=== PATIENT | male | born 1985 | race Caucasian/White ===

== ENCOUNTER → 2017-08-11 | Outpatient (CLI) | payer OTHER ==
[~2017-08-11] MED LIST: GLIPIZIDE; GLYMET2.5 PO; Glimepiride4 MG PO; LISINOPRIL; METF500 PO; MULTIVITAMINS; SUMA25 PO
[2017-08-11 13:03] LABS: BASOPHILS ABSOLUTE AUTO 0.03 K/mm3 (0.00-0.23); BASOPHILS PERCENT AUTO 1 % (0-2); EOSINOPHILS ABSOLUTE AUTO 0.17 K/mm3 (0.00-0.68); EOSINOPHILS PERCENT AUTO 3 % (0-6); Hemoglobin 15.6 g/dL (13.5-17.5); IMMATURE GRAN ABSOLUTE AUTO 0.02 K/mm3 (0.00-0.10); IMMATURE GRAN PERCENT AUTO 0 % (0-1); LYMPHOCYTES PERCENT AUTO 33 % (21-46); MONOCYTES ABSOLUTE AUTO 0.46 K/mm3 (0.16-1.47); MONOCYTES PERCENT AUTO 7 % (4-13); Mean Corpuscular HGB 31.3 pg (26.0-34.0); Mean Corpuscular HGB Conc 36.3 g/dL (31.5-36.5); Mean Corpuscular Volume 86 fL (80-100); Mean Platelet Volume 9.1 fL (9.1-12.4); NEUTROPHILS ABSOLUTE AUTO 3.78 K/mm3 (1.96-9.15); NEUTROPHILS PERCENT AUTO 57 % (41-73); Platelet Count 244 K/mm3 (150-400); RDW Coefficient Variation 12.2 % (11.7-14.2); RDW Standard Deviation 38.2 fL (35.1-46.3); Red Blood Cell Count 4.99 M/mm3 (4.30-5.90); White Blood Cell Count 6.66 K/mm3 (4.00-11.30)
[2017-08-11 13:19] LABS: Alanine Aminotransfer (ALT/SGP 58 U/L (12-78); Albumin, Blood 4.2 g/dL (3.4-5.0); Alk Phos 73 U/L (40-126); Anion Gap 14 mmol/L (6-16); Aspartate Aminotrans (AST/SGOT 15 U/L (12-37); Bilirubin, Total 0.4 mg/dL (0.1-1.0); Blood Urea Nitrogen 14 mg/dL (8-24); CO2, Blood 24 mmol/L (21-32); Calcium, Blood 9.4 mg/dL (8.5-10.1); Chloride, Blood 97 mmol/L (98-108); Creatinine, Blood 1.08 mg/dL (0.60-1.20); Globulin, Blood 4.4 g/dL (2.2-4.0); Glomerular Filtration Rate >60 (60-); Glucose, Blood 412 mg/dL (70-99); Potassium, Blood 4.1 mmol/L (3.5-5.5); Sodium, Blood 135 mmol/L (136-145); Total Protein, Blood 8.6 g/dL (6.4-8.2)
== END | disposition home or self-care (01) ==
LOC: LAB EV 12:58 → LAB SHORT 12:58
PROVIDERS: Family Medicine
DX: R10.9 Unspecified abdominal pain (principal)
CPT/HCPCS: 80053; 85025

== ENCOUNTER → 2017-09-09 | Outpatient (CLI) | payer OTHER | LOC: LAB 10:30 → LAB SHORT 10:30 | DX: E11.621 Type 2 diabetes mellitus with foot ulcer (principal); L97.509 Non-pressure chronic ulcer of other part of unspecified foot with unspecified severity | CPT/HCPCS: 87070; 87077; 87186; 87205 ==

== ENCOUNTER → 2017-10-17 | Outpatient (CLI) | payer OTHER | END | disposition home or self-care (01) | LOC: LAB SHORT 13:40 → LAB 13:40 | DX: E11.621 Type 2 diabetes mellitus with foot ulcer (principal); L97.509 Non-pressure chronic ulcer of other part of unspecified foot with unspecified severity | CPT/HCPCS: 87070; 87186 ==

== ENCOUNTER 2018-06-23 14:31 | Inpatient (IN) | payer OTHER ==
[~2018-06-23] VITALS: Ht 165.1 cm; Wt 105.0 kg
[~2018-06-23 14:31] MED LIST changes: +Augmentin 875-1 EACH PO; +Bactrim Ds Tab1 EACH PO
[2018-06-23 16:22] LABS: BASOPHILS ABSOLUTE AUTO 0.02 K/mm3 (0.00-0.23); BASOPHILS PERCENT AUTO 0 % (0-2); EOSINOPHILS PERCENT AUTO 1 % (0-6); Hematocrit 36.8 % (37.0-53.0); Hemoglobin 12.8 g/dL (13.5-17.5); IMMATURE GRAN ABSOLUTE AUTO 0.02 K/mm3 (0.00-0.10); IMMATURE GRAN PERCENT AUTO 0 % (0-1); LYMPHOCYTES PERCENT AUTO 17 % (21-46); MONOCYTES ABSOLUTE AUTO 0.57 K/mm3 (0.16-1.47); MONOCYTES PERCENT AUTO 7 % (4-13); Mean Corpuscular HGB 30.7 pg (26.0-34.0); Mean Corpuscular HGB Conc 34.8 g/dL (31.5-36.5); Mean Corpuscular Volume 88 fL (80-100); Mean Platelet Volume 8.6 fL (9.1-12.4); NEUTROPHILS ABSOLUTE AUTO 6.38 K/mm3 (1.96-9.15); NEUTROPHILS PERCENT AUTO 75 % (41-73); Platelet Count 300 K/mm3 (150-400); RDW Coefficient Variation 11.9 % (11.7-14.2); RDW Standard Deviation 38.5 fL (35.1-46.3); Red Blood Cell Count 4.17 M/mm3 (4.30-5.90); White Blood Cell Count 8.49 K/mm3 (4.00-11.30)
[2018-06-23 17:45] LABS: Alanine Aminotransfer (ALT/SGP 24 U/L (12-78); Albumin, Blood 3.5 g/dL (3.4-5.0); Albumin/Globulin Ratio 0.7 (0.8-1.8); Alk Phos 66 U/L (50-136); Anion Gap 9 mmol/L (6-16); Aspartate Aminotrans (AST/SGOT 12 U/L (12-37); Bilirubin, Total 0.5 mg/dL (0.1-1.0); Blood Urea Nitrogen 19 mg/dL (8-24); Bun/Creatinine Ratio 19.3 (12.0-20.0); CO2, Blood 27 mmol/L (21-32); Calcium, Blood 9.3 mg/dL (8.5-10.1); Chloride, Blood 97 mmol/L (98-108); Creatinine, Blood 0.98 mg/dL (0.60-1.20); Globulin, Blood 4.9 g/dL (2.2-4.0); Glomerular Filtration Rate >60 (60-); Glucose, Blood 290 mg/dL (70-99); Potassium, Blood 3.8 mmol/L (3.5-5.5); Sodium, Blood 133 mmol/L (136-145); Total Protein, Blood 8.4 g/dL (6.4-8.2)
[2018-06-23] MEDS ORDERED: IBUP600 PO (17:50)
[2018-06-23] MEDS ORDERED: BASAGLAR K100 UNIT/1 SC (17:50)
[2018-06-23] MEDS ORDERED: Humalog100 UNIT/1 SC (17:50)
[2018-06-23] MEDS ORDERED: Lisinopril2.5 MG PO (17:51)
[2018-06-23] MEDS ORDERED: GABA300 PO (17:51)
[2018-06-23] MEDS ORDERED: ASPI81CH PO (17:51)
[2018-06-23] MEDS ORDERED: [UNRECOGNIZED DRUG - CODE] PO (17:52)
[2018-06-23] MEDS ORDERED: VITAMIN B122500 MCG PO (17:53)
[2018-06-23] MEDS ORDERED: [UNRECOGNIZED DRUG - OTHER] PO (17:54)
[2018-06-23] MEDS ORDERED: [UNRECOGNIZED DRUG - CODE] SC (19:05)
[2018-06-23 22:58] LABS: Source, Urine Catheter
[2018-06-23 23:12] LABS: Bilirubin, Urine Neg (Neg); Blood, Urine 1+ (Neg); Glucose Qualitative, Urine 3+ (Neg); Ketones, Urine 2+ (Neg); Leukocyte Esterase, Urine Neg (Neg); Nitrite, Urine Neg (Neg); Protein, Urine 2+ (Neg); Urobilinogen, Urine NORM (Normal)
[2018-06-23 23:13] LABS: Influenza A Negative (NEGATIVE); Influenza B Negative (NEGATIVE)
[2018-06-23 23:21] LABS: Appearance, Urine Clear (Clear); Color, Urine Yellow (P-Yellow)
[2018-06-23 23:22] LABS: Bacteria Not Seen /hpf; Red Blood Cells, Urine 0-2 /hpf (0-2); Squamous Epithelial Cells Not Seen /hpf (Few); White Blood Cells, Urine Not Seen /hpf (0-5)
[2018-06-24 00:33] LABS: Adenovirus Not Detected (NOT DETECT); Bordetella pertussis Not Detected (NOT DETECT); Chlamydophila pneumoniae Not Detected (NOT DETECT); Coronavirus 229E Not Detected (NOT DETECT); Coronavirus HKU1 Not Detected (NOT DETECT); Coronavirus NL63 Not Detected (NOT DETECT); Coronavirus OC43 Not Detected (NOT DETECT); Human Metapneumovirus Not Detected (NOT DETECT); Human Rhinovirus/Enterovirus Not Detected (NOT DETECT); Influenza A Not Detected (NOT DETECT); Influenza A/2009-H1 Not Detected (NOT DETECT); Influenza A/H1 Not Detected (NOT DETECT); Influenza A/H3 Not Detected (NOT DETECT); Influenza B Not Detected (NOT DETECT); Mycoplasma pneumoniae Not Detected (NOT DETECT); Parainfluenza Virus 1 Not Detected (NOT DETECT); Parainfluenza Virus 2 Not Detected (NOT DETECT); Parainfluenza Virus 3 Not Detected (NOT DETECT); Parainfluenza Virus 4 Not Detected (NOT DETECT); Respiratory Syncytial Virus Not Detected (NOT DETECT)
--- NOTE | 2018-06-24 02:25 | NUR ---
FEVER PT CONTINUES TO HAVE FEVERS AFTER ADMINISTRATION OF 650 MG TYLENOL 2X. TEMP IS CURRENTLY AT 102.8. PT IS WILL TAKE A COLD SHOWER AND BE PACKED WITH ICE; THEN RECHECK TEMP. BP 120/74, RR 14, PULSE 124, 94% ON ROOM AIR. PT RECIEVING 3RD LITER OF FLUID BOLUS. WILL CONT TO MONITOR.
--- NOTE | 2018-06-24 02:27 | NUR ---
EMESIS PT HAS 1 EPISODE OF EMESIS, DARK BROWN, FOOD-LIKE CONSISTENCY. PT REPORTS HE WAS COUGHING TO HARD AND BEGAN TO VOMIT. LARGE AMOUNT OF EMESIS, ROUGHLY 600 ML. VITAL SIGNS TAKEN AT THIS TIME; SEE PRIOR NOTE. ADMINISTERED ZOFRAN AND PRN TYLENOL FOR FEVER. PT TO TAKE COLD SHOWER NOW. WILL CONT TO MONITOR.
--- NOTE | 2018-06-24 02:48 | NUR ---
FEVER REASSESSMENT TEMP DOWN TO 100.2 AFTER 650 MG TYLENOL AND COLD SHOWER. PT RESTING AT THIS TIME. WILL CONT TO MONITOR VITAL SIGNS. PT STILL ON 3RD LITER OF IV BOLUS NS. RERAW OF FOLLOW UP LA NEG AND WNL.
[2018-06-24 05:33] LABS: BASOPHILS ABSOLUTE AUTO 0.01 K/mm3 (0.00-0.23); BASOPHILS PERCENT AUTO 0 % (0-2); EOSINOPHILS ABSOLUTE AUTO 0.01 K/mm3 (0.00-0.68); EOSINOPHILS PERCENT AUTO 0 % (0-6); Hematocrit 31.3 % (37.0-53.0); Hemoglobin 10.5 g/dL (13.5-17.5); IMMATURE GRAN ABSOLUTE AUTO 0.02 K/mm3 (0.00-0.10); IMMATURE GRAN PERCENT AUTO 0 % (0-1); LYMPHOCYTES ABSOLUTE AUTO 0.69 K/mm3 (0.84-5.20); LYMPHOCYTES PERCENT AUTO 9 % (21-46); MONOCYTES ABSOLUTE AUTO 0.52 K/mm3 (0.16-1.47); MONOCYTES PERCENT AUTO 7 % (4-13); Mean Corpuscular HGB 30.4 pg (26.0-34.0); Mean Corpuscular HGB Conc 33.5 g/dL (31.5-36.5); Mean Platelet Volume 8.7 fL (9.1-12.4); NEUTROPHILS ABSOLUTE AUTO 6.09 K/mm3 (1.96-9.15); NEUTROPHILS PERCENT AUTO 83 % (41-73); Platelet Count 217 K/mm3 (150-400); RDW Coefficient Variation 12.1 % (11.7-14.2); RDW Standard Deviation 40.2 fL (35.1-46.3); Red Blood Cell Count 3.45 M/mm3 (4.30-5.90); White Blood Cell Count 7.34 K/mm3 (4.00-11.30)
[2018-06-24 05:52] LABS: Mean Corpuscular Volume 91 fL (80-100)
--- NOTE | 2018-06-24 06:40 | NUR ---
POSITIVE BLOOD CULTURE POSITIVE BLOOD CULTURE RECIEVED @ 625 FOR GRAM + COCCI. PER PHARMACY, PT CURRENT ANTIBIOTIC REGIMEN PROVIDES COVERAGE FOR THIS. DID NOT NOTIFY DOC PT IS RECIEVING ADEQUATE COVERAGE WITH CURRENT ORDERS. WILL CONT TO MONITOR.
[2018-06-24 06:41] LABS: Anion Gap 10 mmol/L (6-16); Blood Urea Nitrogen 14 mg/dL (8-24); CO2, Blood 22 mmol/L (21-32); Calcium, Blood 7.5 mg/dL (8.5-10.1); Chloride, Blood 103 mmol/L (98-108); Creatinine, Blood 0.93 mg/dL (0.60-1.20); Glomerular Filtration Rate >60 (60-); Glucose, Blood 203 mg/dL (70-99); Potassium, Blood 3.4 mmol/L (3.5-5.5); Sodium, Blood 135 mmol/L (136-145)
[2018-06-24 06:52] LABS: C-REACTIVE PROTEIN, EXT RANGE >19.000 mg/dL (0.000-0.300)
--- NOTE | 2018-06-24 07:19 | NUR ---
SHIFT SUMMARY & ADMISSION NOTE: PT NEW ED ADMIT THIS SHIFT. PT ADMITTED FOR OSTEOMYLITIS TO L BIG TOE FROM DIABETIC ULCER. PER PT, DIABETIC ULCER HAS BEEN PRESENT FOR >6 MONTHS. 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 KEEPING AREA C/D/I. PT CONTINUES TO SPIKE HIGH FEVERS; SEE PRIOR NOTE; PRN TYLENOL AND NONPHARM INTERVENTIONS HAVE BEEN UNSUCCESSFUL. TEMP LOWS DOWN TO 100, BUT RISES BACK UP TO 102 SHORTLY AFTER. PT HAS 1 EPISODE OF VOMITING THIS SHIFT; PRN ZOFRAN ADMINISTERED c RELIEF. A&O, INDEPENDENT IN . PT RECIEVED 3 LITERS OF NS PER ORDERS AND IS CURRENTLY RECIEVING MAINTENANCE FLUIDS: NS @ 125 ML/HR. DR MONIQUE CONSULT IN ORDERS; DOC AWARE OF PT ADMISSION. WILL CONT TO MONITOR AND PROVIDE CARE UNTIL PRESUMED BY ONCOMING RN.
--- NOTE | 2018-06-24 17:13 | NUR ---
SHIFT SUMMARY NO ACUTE CHANGES. PATIENT MEDICATED X 2 FOR NAUSEA AND VOMITING THIS MORNING. NO COMPLAINTS OF NAUSEA THIS AFTERNOON. PATIENT NAPPED MOST OF THE SHIFT. FAMILY AT BEDSIDE. CALL LIGHT IN REACH, WILL CONTINUE TO MONITOR.
[2018-06-24 20:56] LABS: Vancomycin, Trough 11.8 ug/mL (5.0-10.0)
[2018-06-25 05:34] LABS: BASOPHILS ABSOLUTE AUTO 0.01 K/mm3 (0.00-0.23); BASOPHILS PERCENT AUTO 0 % (0-2); EOSINOPHILS ABSOLUTE AUTO 0.09 K/mm3 (0.00-0.68); EOSINOPHILS PERCENT AUTO 2 % (0-6); Hematocrit 34.5 % (37.0-53.0); Hemoglobin 11.6 g/dL (13.5-17.5); IMMATURE GRAN ABSOLUTE AUTO 0.02 K/mm3 (0.00-0.10); IMMATURE GRAN PERCENT AUTO 0 % (0-1); LYMPHOCYTES ABSOLUTE AUTO 1.09 K/mm3 (0.84-5.20); LYMPHOCYTES PERCENT AUTO 21 % (21-46); MONOCYTES ABSOLUTE AUTO 0.53 K/mm3 (0.16-1.47); MONOCYTES PERCENT AUTO 10 % (4-13); Mean Corpuscular HGB 30.4 pg (26.0-34.0); Mean Corpuscular HGB Conc 33.6 g/dL (31.5-36.5); Mean Corpuscular Volume 91 fL (80-100); Mean Platelet Volume 8.7 fL (9.1-12.4); NEUTROPHILS ABSOLUTE AUTO 3.52 K/mm3 (1.96-9.15); NEUTROPHILS PERCENT AUTO 67 % (41-73); Platelet Count 220 K/mm3 (150-400); RDW Coefficient Variation 12.3 % (11.7-14.2); RDW Standard Deviation 40.9 fL (35.1-46.3); Red Blood Cell Count 3.81 M/mm3 (4.30-5.90); White Blood Cell Count 5.26 K/mm3 (4.00-11.30)
[2018-06-25 05:55] LABS: Anion Gap 11 mmol/L (6-16); Blood Urea Nitrogen 13 mg/dL (8-24); Bun/Creatinine Ratio 17.2 (12.0-20.0); CO2, Blood 21 mmol/L (21-32); Calcium, Blood 7.8 mg/dL (8.5-10.1); Chloride, Blood 108 mmol/L (98-108); Creatinine, Blood 0.76 mg/dL (0.60-1.20); Glomerular Filtration Rate >60 (60-); Glucose, Blood 156 mg/dL (70-99); Potassium, Blood 3.8 mmol/L (3.5-5.5); Sodium, Blood 140 mmol/L (136-145)
--- NOTE | 2018-06-25 06:29 | NUR ---
SHIFT SUMMARY: PT IS A&O X 4, INDEPENDENT IN RM. CONT TO RECIEVE IV ANTIBIOTICS PER ORDERS. L GREAT TOE ULCERATION; POS FOR OSETOMYLITIS. TREATED 1X FOR PAIN c 25 MCG IV FENTANYL. TREATED 2X FOR NAUSA/VOMITING c IV REGLAN AND IV ZOFRAN. FEVERS AT START OF SHIFT UP TO 103. ADMNINSTERED TYLENOL AND APPLIED HEAT PACKS; TEMP NOW 97 - 98. PT IS DIAPHORETIC AND SHIVERING AT TIMES, REPORTS FEELING COLD. EXPLAINED TO PT THIS IS A NORMAL FINDING THE BODY IS TRYING TO FIGHT OFF INFECTION. PT UNDERSTANDS AT THIS POINT. NS RUNNING @ 150 ML/HR. VSS. CBG 174 THIS EVENING; NO COV INDICATED. WILL CONT TO MONITOR AND PROVIDE CARE UNTIL PRESUMED BY ONCOMING RN.
--- NOTE | 2018-06-25 19:07 | NUR ---
PROVIDER CONSULT IN FOR KAYDEN, HOWEVER, DR MONIQUE IS NOT ON [facility] OR CALL LIST. NOTIFIED DR OLMSTEAD. NEW ORDERS TO CALL PODIATRY MACHINE SILVER STRIPPER FOR 06/26/18 DR URI PEREZ.
--- NOTE | 2018-06-25 19:55 | NUR ---
SHIFT SUMMARY PT A&OX4. CALM AND COOPERATIVE WITH CARE. PT IND IN ROOM. UP IN CHAIR FOR MEALS. PT REPORTS PAIN IN LEFT FOOT, MEDICATED PER EMAR. TWO EPISODES OF EMESIS WITH NAUSEA T/O SHIFT, MEDICATED PER EMAR. PT DENIES SOB, >90% ON RA. PT RECEIVING IV ANTIBIOTICS DURING SHIFT, RESTARTED ON ZOSYN PER ORDERS. PT FEBRILE THIS AM, MEDICATED PER EMAR. HR ELEVATED. OTHER VSS. NO OTHER ACUTE CHANGES NOTED DURING SHIFT WILL CONTINUE TO MONITOR UNTIL REPORT GIVEN TO ONCOMING RN.
[2018-06-25 20:56] LABS: Vancomycin, Trough 16.2 ug/mL (5.0-10.0)
--- NOTE | 2018-06-26 01:27 | NUR ---
PODIATRY CONSULT CALLED TO ANSWERING SERVICE ON 06/26/18 AT 0105 PER DAY SHIFT INSTRUCTION AND ORDERS. WILL ENSURE DAY STAFF FOLLOWS UP.
--- NOTE | 2018-06-26 03:40 | NUR ---
PT CONT'S TO HAVE COUGHING FITS AND C/O ABDO PAIN/NAUSEA FROM THEM. HE IS BREATHING SHALLOW RESULT AND SPO2 DROPPED TO 80'S% ON RA. PT PLACE ON 2L O2 AND ENCOURAGED TO DEEP BREATH FOR SPO2>90%. HIS TEMP IS UP TO 100.5 ORALLY AND THIS RN PLANS TO GIVE MOTRIN SINCE IT ISN'T TIME AGAIN YET FOR TYLENOL. HE IS ALSO TACHYCARDIC LIKELY R/T PAIN/LOW GRADE TEMP AT 112 BPM. ALERTED TO FINDINGS AND NEW ORDER RECIEVED FOR ROBITUSSIN 10ML PO Q6 PRN. HE ALSO INSTRUCTED TO MEDICATE W/OTHER PRN MEDS FOR FEVER/PAIN PER EMAR AND TO ALERT IF PT WORSENS. WILL MEDICATE AND MONITOR CLOSELY FOR CHANGES.
[2018-06-26 06:00] LABS: BASOPHILS ABSOLUTE AUTO 0.01 K/mm3 (0.00-0.23); BASOPHILS PERCENT AUTO 0 % (0-2); EOSINOPHILS ABSOLUTE AUTO 0.06 K/mm3 (0.00-0.68); EOSINOPHILS PERCENT AUTO 1 % (0-6); Hematocrit 29.2 % (37.0-53.0); IMMATURE GRAN ABSOLUTE AUTO 0.02 K/mm3 (0.00-0.10); IMMATURE GRAN PERCENT AUTO 0 % (0-1); LYMPHOCYTES ABSOLUTE AUTO 1.03 K/mm3 (0.84-5.20); LYMPHOCYTES PERCENT AUTO 22 % (21-46); MONOCYTES ABSOLUTE AUTO 0.44 K/mm3 (0.16-1.47); MONOCYTES PERCENT AUTO 9 % (4-13); Mean Corpuscular HGB 30.5 pg (26.0-34.0); Mean Corpuscular HGB Conc 34.2 g/dL (31.5-36.5); Mean Corpuscular Volume 89 fL (80-100); Mean Platelet Volume 8.6 fL (9.1-12.4); NEUTROPHILS ABSOLUTE AUTO 3.14 K/mm3 (1.96-9.15); NEUTROPHILS PERCENT AUTO 67 % (41-73); Platelet Count 228 K/mm3 (150-400); RDW Coefficient Variation 12.4 % (11.7-14.2); RDW Standard Deviation 40.5 fL (35.1-46.3); Red Blood Cell Count 3.28 M/mm3 (4.30-5.90)
--- NOTE | 2018-06-26 06:15 | NUR ---
SUMMARY: A/OX4, INDEPENDENT AND SPECIFIES NEEDS. PT HAD EPISODES OF NAUSEA, RIB/STOMACH PAIN, L.GREAT TOE PAIN AND COUGHING FITS T/O NOCTE. ZOFRAN X2 AND REGLAN X1 PROVIDED FOR TOLERABLE CONTROL OF NAUSEA W/O EMESIS. TYLENOL X2 AND FENTANLY X2 PROVIDED EFFECTIVE PAIN RELIEF AND NEW ORDER RECIEVED FOR ROBITUSSIN WHICH SUPRESSED COUGH TO PT'S SATISFACTION. HE ALSO HAD GABAPENTIN PRN AT HS PER PT REQUEST AND WAS GIVEN MOTRIN FOR LOW GRADE TEMP OF 100.5, IMPROVED NOW THIS AM TO 97.9. PT BEGAN TO BREATH SHALLOW AND MORE RAPIDLY RELATED TO RIB PAIN AND COUGHING SO HE REQUIRED 2L O2 SINCE SPO2 WAS DOWN TO 80'S% ON RA. HE ALSO WAS ATTEMPTING TO SUPRESS COUGH HIMSELF SO DEVELOPED FAINT RHALES IN HIS BILAT LUNG BASES. RT CONSULTED AND WAS PLACING NEW ORDERS. PT ENCOURAGED TO DEEP, BX AND COUGH WHILE IMPROVED PAIN CONTROL WAS PRESENT. WILL ALERT DAY RN OF POSSIBLE NEED FOR DIURESIS. VANCO AND ZOSYN RECIEVED T/O NOCTE FOR OSTEOMYELITIS AND NS CONT'S INFUSING AT 150 ML/HR FOR SEPSIS. PT OCCASIONALLY TACHYCARDIC DEPENDING ON PAIN CONTROL AND ANXIETY. PODIATRY CX WAS CALLED TO ANSWERING SERVICE PER ISTRUCTION, POSSIBLE TOE AMPUTATION REQUIRED. TOE REMAINS RED, SWOLLEN AND TENDER. NO ACUTE CHANGES, VSS. WILL MONITOR AND REPORT TO DAY RN.
--- NOTE | 2018-06-26 11:30 | NUR ---
PATIENT PERMISSION PATIENT GAVE THIS STUDENT NURSE PERMISSION TO PROVIDE CARE ON 06/27/2018 FROM [id number].
--- NOTE | 2018-06-26 15:50 | NUR ---
History, Chart, Medications and Allergies reviewed before start of procedure. Patient confirms NPO status and agrees with scheduled surgery. PT NOTED TO HAVE BIOX OF 75% ON RA WITH GOOD WAVE FORM. PT ENCOURAGED TO TAKE DEEP BREATHS. PT STATES THAT HE HAS BEEN USING O2 SINCE LAST NIGHT BUT DENIES HX OF LUNG ISSUES. PT BIOX WITH DEEP BREATHING ONLY INCREASED TO MID 80'S WITH CONCENTRATED EFFORTS TO INCREASED BIOX. PT LS NOTED TO BE DIMINISHED IN THE BASES, GREATER ON THE R THEN THE LEFT. PT PLACED ON O2 AT 2L WHICH HE STATE HE HAS BEEN WEARING. BIOX UP TO 85% WHILE PT AT REST. O2 INCREASED TO 4L BIOX 93-95%. PT DENIES SOB OR BUT STATES HE HAS BEEN HAVING COUGHNING FITS. DENIES SMOKING OR ASTHMA.
--- NOTE | 2018-06-26 16:18 | NUR ---
DR. NULL AT BEDSIDE. EKG COMPLETED. ORDERS FOR CHEST XRAY AND DOUNEB. PT NOTED HAVE DROP IN BIOX WITH ACTIVITY TO REMOVED PANT BEFORE SURGERY BIOX DROPPED TO 91% WHILE ON 4L FROM 96%. PT DENIES CHEST PAIN OR SOB.
--- NOTE | 2018-06-26 16:35 | NUR ---
PT TAKEN TO RADIOLOGY FOR CHEST XRAY. PLAN TO HAVE A DOUNEB WHEN HE RETURNS BEFORE GOING TO SURGERY. PT CARE TRANSFERED TO BRENDA. JUNE.
--- NOTE | 2018-06-26 17:04 | NUR ---
SHIFT SUMMARY NO ACUTE CHANGES. PATIENT MEDICATED X1 FOR NAUSEA AND X1 FOR PAIN. PATIENT RESTED MOST OF SHIFT WITH FAMILY AT BEDSIDE. PATIENT TRANSFERED TO OR FOR L GREAT TOE AMPUTATION. PATIENT HAS NOT YET RETURNED TO ROOM.
--- NOTE | 2018-06-26 17:20 | NUR ---
06/26/18 9160 Dakota Cast PT RECIEVED SCHEDULED ANTIBIOTICS PRIOR TO ARRIVAL TO OR.
--- NOTE | 2018-06-26 19:03 | NUR ---
Patient gave student nurse permission to provide care on 06/27/2018.
--- NOTE | 2018-06-26 19:38 | NUR ---
Patient has lillievin alysa student nurse permission to access medical records, administer medication, and provide care on 06/26/2018
[2018-06-26 20:42] LABS: Vancomycin, Trough 17.7 ug/mL (5.0-10.0)
--- NOTE | 2018-06-27 05:53 | NUR ---
SUMMARY: A/OX4, SPECIFIES NEEDS AND INDEPENDENT IN ROOM W/FWW AND HEEL TOUCH ONLY DURING WT BEARING ON L.FOOT. PT POST OP DAY 1 FOR L.GREAT TOE AMPUTATION. DX BY REMAINS C/D/I. FENTANYL WAS RECIEVED FOR TOLERABLE CONTROL OF POST OP PAIN. IVF WERE CHANGED TO NS AT 75 ML/HR PER AND IV ABX RECIEVED. PT DENIED NAUSEA AND NO FEVERS WERE OBSERVED THIS SHIFT. A SLEEP STUDY WAS PERFORMED AND PT BEGAN ON 2L O2 BUT WAS TITRATED UP TO 3L BY RT, DESATS NOTED TO 80'S%. HE ALSO TAKES SHALLOW RESPS DESPITE DEEP BX AND COUGHING REITTERATED. LS IMPROVING AND VERY FINE CRACKLES WERE HEARD IN LUNG BASES AT START OF SHIFT. OCCASIONALY MOIST PRODUCTIVE COUGH PERSISTS. NO ACUTE CHANGES, VSS/AFEBRILE. WILL MONITOR AND REPORT TO DAY RN.
[2018-06-27 06:07] LABS: BASOPHILS ABSOLUTE AUTO 0.02 K/mm3 (0.00-0.23); BASOPHILS PERCENT AUTO 0 % (0-2); EOSINOPHILS ABSOLUTE AUTO 0.08 K/mm3 (0.00-0.68); EOSINOPHILS PERCENT AUTO 2 % (0-6); Hematocrit 29.2 % (37.0-53.0); Hemoglobin 9.9 g/dL (13.5-17.5); IMMATURE GRAN ABSOLUTE AUTO 0.04 K/mm3 (0.00-0.10); IMMATURE GRAN PERCENT AUTO 1 % (0-1); LYMPHOCYTES ABSOLUTE AUTO 1.37 K/mm3 (0.84-5.20); LYMPHOCYTES PERCENT AUTO 29 % (21-46); MONOCYTES ABSOLUTE AUTO 0.42 K/mm3 (0.16-1.47); MONOCYTES PERCENT AUTO 9 % (4-13); Mean Corpuscular HGB 30.7 pg (26.0-34.0); Mean Corpuscular HGB Conc 33.9 g/dL (31.5-36.5); Mean Corpuscular Volume 90 fL (80-100); Mean Platelet Volume 8.4 fL (9.1-12.4); NEUTROPHILS ABSOLUTE AUTO 2.75 K/mm3 (1.96-9.15); NEUTROPHILS PERCENT AUTO 59 % (41-73); Platelet Count 249 K/mm3 (150-400); RDW Coefficient Variation 12.7 % (11.7-14.2); Red Blood Cell Count 3.23 M/mm3 (4.30-5.90); White Blood Cell Count 4.68 K/mm3 (4.00-11.30)
[2018-06-27 06:26] LABS: Anion Gap 8 mmol/L (6-16); Blood Urea Nitrogen 5 mg/dL (8-24); Bun/Creatinine Ratio 7.1 (12.0-20.0); CO2, Blood 26 mmol/L (21-32); Calcium, Blood 8.1 mg/dL (8.5-10.1); Chloride, Blood 108 mmol/L (98-108); Creatinine, Blood 0.71 mg/dL (0.60-1.20); Glomerular Filtration Rate >60 (60-); Glucose, Blood 145 mg/dL (70-99); Potassium, Blood 3.2 mmol/L (3.5-5.5); Sodium, Blood 142 mmol/L (136-145)
[2018-06-27] MEDS ORDERED: ACET325 PO (13:01)
[2018-06-27] MEDS ORDERED: FURO20 (13:04)
[2018-06-27] MEDS ORDERED: ONDA4ODT MM (13:05)
[2018-06-27] MEDS ORDERED: AMOX875 PO (13:06)
[2018-06-27] MEDS ORDERED: SACC250C (13:07)
[2018-06-27] MEDS ORDERED: POTA10T PO (13:08)
[2018-06-27] MEDS ORDERED: HYDR-86 (13:09)
[2018-06-27] MEDS ORDERED: Humulin R500 UNIT/1 (13:14)
--- NOTE | 2018-06-27 15:25 | NUR ---
DISCHARGE DISCHARGE MEDICATIONS AND INSTRUCTIONS EXPLAINED TO PATIENT AND PATIENT'S . THEY STATED UNDERSTANDING. IV REMOVED WITHOUT DIFFICULTY. BELONGINGS WITH PATIENT. PATIENT TRANSFERED TO PRIVATE VEHICLE VIA WHEELCHAIR.
== END 2018-06-27 15:15 | disposition home or self-care (01) | DRG 853 ==
LOC: ER 14:31 → MEDS 19:09
PROVIDERS: Physician Assistant; Podiatrist Foot & Ankle Surgery; ADMIT Family Medicine
PROC: 0Y6Q0Z0 Detachment at Left 1st Toe, Complete, Open Approach (ICD-10-PCS; principal; 2018-06-26 16:30)
DX: A41.81 Sepsis due to Enterococcus (principal); J96.00 Acute respiratory failure, unspecified whether with hypoxia or hypercapnia; A48.0 Gas gangrene; E10.52 Type 1 diabetes mellitus with diabetic peripheral angiopathy with gangrene; M86.8X7 Other osteomyelitis, ankle and foot; A41.1 Sepsis due to other specified staphylococcus; E10.621 Type 1 diabetes mellitus with foot ulcer; L97.529 Non-pressure chronic ulcer of other part of left foot with unspecified severity; E10.69 Type 1 diabetes mellitus with other specified complication; E10.40 Type 1 diabetes mellitus with diabetic neuropathy, unspecified; E66.9 Obesity, unspecified; E87.70 Fluid overload, unspecified; R11.2 Nausea with vomiting, unspecified; R91.8 Other nonspecific abnormal finding of lung field; Z88.8 Allergy status to other drugs, medicaments and biological substances; Z79.82 Long term (current) use of aspirin; Z79.4 Long term (current) use of insulin; Z79.1 Long term (current) use of non-steroidal anti-inflammatories (NSAID); Z79.899 Other long term (current) drug therapy; Z68.35 Body mass index [BMI] 35.0-35.9, adult
CPT/HCPCS: 36415; 71045; 71046; 73701; 80048; 80053; 80202; 81001; 82947; 83036; 83605; 84145; 85025; 86140; 87040; 87070; 87075; 87077; 87147; 87186; 87205; 87486; 87581; 87633; 87798; 87804; 88305; 88311; 93005; 93010; 94762; 99284; J1650; J1815; J1940; J2250; J2405; J2543; J2765; J3010; J3370; J7030; J7050; J7120; Q9967

== ENCOUNTER → 2018-09-26 | Outpatient (CLI) | payer OTHER ==
[~2018-09-26] MED LIST changes: +ACET325 PO; +AMOX875 PO; +ASPI81CH PO; +BASAGLAR K100 UNIT/1 SC; +CEFU250T47 PO; +EPINEPHRIN0.3 MG/0.3; +FURO20; +GABA300 PO; +HYDR-86; +Humalog100 UNIT/1 SC; +Humulin R500 UNIT/1; +Hydrochloroth12.5 MG PO; +IBUP600 PO; +Lisinopril2.5 MG PO; +ONDA4ODT MM; +POTA10T PO; +SACC250C; +VITAMIN B122500 MCG PO; +[UNRECOGNIZED DRUG - CODE] PO; +[UNRECOGNIZED DRUG - CODE] SC; +[UNRECOGNIZED DRUG - OTHER] PO
== END | disposition home or self-care (01) ==
LOC: LAB SHORT 14:42 → LAB 14:42
DX: E11.621 Type 2 diabetes mellitus with foot ulcer (principal); L97.429 Non-pressure chronic ulcer of left heel and midfoot with unspecified severity; I96 Gangrene, not elsewhere classified; L03.032 Cellulitis of left toe
CPT/HCPCS: 87070; 87075; 87205

== ENCOUNTER 2018-10-30 20:26 | Emergency (ER) | payer OTHER ==
[~2018-10-30] VITALS: Ht 162.6 cm; Wt 97.5 kg
== END 2018-10-30 21:26 | disposition home or self-care (01) ==
LOC: ER 20:26
DX: M96.830 Postprocedural hemorrhage of a musculoskeletal structure following a musculoskeletal system procedure (principal); Z91.030 Bee allergy status; Z88.8 Allergy status to other drugs, medicaments and biological substances; Z79.899 Other long term (current) drug therapy; Z79.4 Long term (current) use of insulin; Z79.82 Long term (current) use of aspirin; E11.9 Type 2 diabetes mellitus without complications
CPT/HCPCS: 99282

== ENCOUNTER → 2018-10-30 | Outpatient (CLI) | payer OTHER | END | disposition home or self-care (01) | LOC: PLD 09:48 → LAB SHORT 09:48 → LAB 09:48 | DX: E11.621 Type 2 diabetes mellitus with foot ulcer (principal); L97.509 Non-pressure chronic ulcer of other part of unspecified foot with unspecified severity; E11.42 Type 2 diabetes mellitus with diabetic polyneuropathy; M86.172 Other acute osteomyelitis, left ankle and foot; L03.032 Cellulitis of left toe; R60.0 Localized edema; R20.0 Anesthesia of skin | CPT/HCPCS: 87070; 87075; 87205; 88305 ==

== ENCOUNTER 2019-06-11 07:30 | Observation (INO) | payer OTHER ==
[~2019-06-11] VITALS: Ht 162.6 cm; Wt 100.3 kg
[~2019-06-11 07:30] MED LIST changes: -ASPI81CH PO; +Aspirin EC81 MG PO; +B-121000 MC3 PO; -VITAMIN B122500 MCG PO
[2019-06-11 08:11] LABS: Source, Urine Clean Catch
[2019-06-11 08:15] LABS: BASOPHILS ABSOLUTE AUTO 0.02 K/mm3 (0.00-0.23); BASOPHILS PERCENT AUTO 0 % (0-2); EOSINOPHILS ABSOLUTE AUTO 0.05 K/mm3 (0.00-0.68); EOSINOPHILS PERCENT AUTO 0 % (0-6); Hematocrit 39.1 % (37.0-53.0); Hemoglobin 13.8 g/dL (13.5-17.5); IMMATURE GRAN ABSOLUTE AUTO 0.04 K/mm3 (0.00-0.10); IMMATURE GRAN PERCENT AUTO 0 % (0-1); LYMPHOCYTES ABSOLUTE AUTO 0.85 K/mm3 (0.84-5.20); LYMPHOCYTES PERCENT AUTO 7 % (21-46); MONOCYTES ABSOLUTE AUTO 0.74 K/mm3 (0.16-1.47); MONOCYTES PERCENT AUTO 6 % (4-13); Mean Corpuscular HGB 31.2 pg (26.0-34.0); Mean Corpuscular HGB Conc 35.3 g/dL (31.5-36.5); Mean Corpuscular Volume 89 fL (80-100); Mean Platelet Volume 8.9 fL (9.1-12.4); NEUTROPHILS ABSOLUTE AUTO 10.13 K/mm3 (1.96-9.15); NEUTROPHILS PERCENT AUTO 86 % (41-73); Platelet Count 194 K/mm3 (150-400); RDW Coefficient Variation 11.8 % (11.7-14.2); RDW Standard Deviation 37.4 fL (35.1-46.3); Red Blood Cell Count 4.42 M/mm3 (4.30-5.90); White Blood Cell Count 11.83 K/mm3 (4.00-11.30)
[2019-06-11 08:18] LABS: Bilirubin, Urine Neg (Neg); Blood, Urine Neg (Neg); Glucose Qualitative, Urine 4+ (Neg); Ketones, Urine 1+ (Neg); Leukocyte Esterase, Urine Neg (Neg); Nitrite, Urine Neg (Neg); Protein, Urine Neg (Neg); Specific Gravity, Urine 1.015 (1.003-1.022); Urobilinogen, Urine NORM (Normal)
[2019-06-11 08:26] LABS: Appearance, Urine Clear (Clear); Color, Urine Yellow (P-Yellow)
[2019-06-11 08:36] LABS: Alanine Aminotransfer (ALT/SGP 33 U/L (12-78); Albumin, Blood 3.9 g/dL (3.4-5.0); Albumin/Globulin Ratio 1.1 (0.8-1.8); Alk Phos 62 U/L (50-136); Anion Gap 5 mmol/L (6-16); Aspartate Aminotrans (AST/SGOT 15 U/L (12-37); Bilirubin, Total 0.4 mg/dL (0.1-1.0); Blood Urea Nitrogen 20 mg/dL (8-24); Bun/Creatinine Ratio 24.7 (12.0-20.0); CO2, Blood 27 mmol/L (21-32); Calcium, Blood 9.2 mg/dL (8.5-10.1); Chloride, Blood 103 mmol/L (98-108); Creatinine, Blood 0.81 mg/dL (0.60-1.20); Globulin, Blood 3.6 g/dL (2.2-4.0); Glomerular Filtration Rate >60 (60-); Glucose, Blood 228 mg/dL (70-99); Potassium, Blood 4.2 mmol/L (3.5-5.5); Sodium, Blood 135 mmol/L (136-145); Total Protein, Blood 7.5 g/dL (6.4-8.2)
[2019-06-11 09:02] LABS: Influenza A Negative (NEGATIVE); Influenza B Negative (NEGATIVE)
[2019-06-11 10:31] LABS: U Amphetamine Screen Not Detected; U Barbituate Screen Not Detected; U Benzodiazapine Screen Not Detected; U Cocaine Screen Not Detected; U Methadone Screen Not Detected; U Methamphetamine Screen Not Detected; U Opiates Screen Not Detected
[2019-06-11 10:32] LABS: U Buprenorphine Screen Not Detected; U Cannabinoids Screen Not Detected; U Oxycodone Screen Not Detected; U Propoxyphene Screen Not Detected
[2019-06-11] MEDS ORDERED: KLOR-CON M1010 MEQ PO (11:35)
[2019-06-11] MEDS ORDERED: ALOGLIPTIN25 MG PO (11:35)
[2019-06-11] MEDS ORDERED: NEURONTIN300 MG PO (11:35)
--- NOTE | 2019-06-11 19:45 | NUR ---
ASSUMED CARE: RECEIVED REPORT FROM JUNE MARIE. ASSUMED CARE OF PT. SITTING UP IN BED EATING DINNER AT THIS TIME, IN NO ACUTE DISTRESS. DENIES ANY NEEDS AT THIS TIME. CALL LIGHT AND POSSESSIONS IN REACH, FAMILY AT THE BEDSIDE, WILL CONTINUE TO MONITOR.
[2019-06-11 20:27] LABS: Adenovirus Not Detected (NOT DETECT); Bordetella pertussis Not Detected (NOT DETECT); Chlamydophila pneumoniae Not Detected (NOT DETECT); Coronavirus 229E Not Detected (NOT DETECT); Coronavirus HKU1 Not Detected (NOT DETECT); Coronavirus NL63 Not Detected (NOT DETECT); Coronavirus OC43 Not Detected (NOT DETECT); Human Metapneumovirus Not Detected (NOT DETECT); Human Rhinovirus/Enterovirus Not Detected (NOT DETECT); Influenza A Not Detected (NOT DETECT); Influenza A/2009-H1 Not Detected (NOT DETECT); Influenza A/H1 Not Detected (NOT DETECT); Influenza A/H3 Not Detected (NOT DETECT); Influenza B Not Detected (NOT DETECT); Mycoplasma pneumoniae Not Detected (NOT DETECT); Parainfluenza Virus 1 Not Detected (NOT DETECT); Parainfluenza Virus 2 Not Detected (NOT DETECT); Parainfluenza Virus 3 Not Detected (NOT DETECT); Parainfluenza Virus 4 Not Detected (NOT DETECT); Respiratory Syncytial Virus Not Detected (NOT DETECT)
[2019-06-12 03:59] LABS: BASOPHILS ABSOLUTE AUTO 0.02 K/mm3 (0.00-0.23); BASOPHILS PERCENT AUTO 0 % (0-2); EOSINOPHILS ABSOLUTE AUTO 0.04 K/mm3 (0.00-0.68); EOSINOPHILS PERCENT AUTO 0 % (0-6); Hematocrit 37.5 % (37.0-53.0); Hemoglobin 12.7 g/dL (13.5-17.5); IMMATURE GRAN ABSOLUTE AUTO 0.02 K/mm3 (0.00-0.10); IMMATURE GRAN PERCENT AUTO 0 % (0-1); LYMPHOCYTES ABSOLUTE AUTO 2.29 K/mm3 (0.84-5.20); LYMPHOCYTES PERCENT AUTO 22 % (21-46); MONOCYTES ABSOLUTE AUTO 0.94 K/mm3 (0.16-1.47); MONOCYTES PERCENT AUTO 9 % (4-13); Mean Corpuscular HGB 30.6 pg (26.0-34.0); Mean Corpuscular HGB Conc 33.9 g/dL (31.5-36.5); Mean Corpuscular Volume 90 fL (80-100); NEUTROPHILS ABSOLUTE AUTO 7.32 K/mm3 (1.96-9.15); NEUTROPHILS PERCENT AUTO 69 % (41-73); Platelet Count 176 K/mm3 (150-400); RDW Coefficient Variation 11.8 % (11.7-14.2); RDW Standard Deviation 38.9 fL (35.1-46.3); Red Blood Cell Count 4.15 M/mm3 (4.30-5.90); White Blood Cell Count 10.63 K/mm3 (4.00-11.30)
[2019-06-12 04:16] LABS: Alanine Aminotransfer (ALT/SGP 19 U/L (12-78); Albumin/Globulin Ratio 0.9 (0.8-1.8); Alk Phos 50 U/L (50-136); Anion Gap 6 mmol/L (6-16); Aspartate Aminotrans (AST/SGOT 12 U/L (12-37); Bilirubin, Total 0.8 mg/dL (0.1-1.0); Blood Urea Nitrogen 12 mg/dL (8-24); Bun/Creatinine Ratio 11.9 (12.0-20.0); CO2, Blood 27 mmol/L (21-32); Calcium, Blood 8.1 mg/dL (8.5-10.1); Chloride, Blood 108 mmol/L (98-108); Creatinine, Blood 1.01 mg/dL (0.60-1.20); Globulin, Blood 3.4 g/dL (2.2-4.0); Glomerular Filtration Rate >60 (60-); Glucose, Blood 136 mg/dL (70-99); Potassium, Blood 3.6 mmol/L (3.5-5.5); Sodium, Blood 141 mmol/L (136-145); Total Protein, Blood 6.4 g/dL (6.4-8.2)
--- NOTE | 2019-06-12 07:20 | NUR ---
PT RESTING IN BED COMFORTABLY, IN NO ACUTE DISTRESS. WAS MONITORED EVERY 1-2 HOURS WITH NEEDS MET, DENIES ANY NEEDS AT THIS TIME. SLEPT T/O NIGHT, VS STABLE. CALL LIGHT AND POSSESSIONS IN REACH, FAMILY REMAINS AT BEDSIDE.
--- NOTE | 2019-06-12 08:45 | NUR ---
History, Chart, Medications and Allergies reviewed before start of procedure. Patient confirms NPO status and agrees with scheduled surgery.
--- NOTE | 2019-06-12 18:13 | NUR ---
PT ARRIVED TO UNIT FROM U AT APPROXIMATELY 1730. TRANSFERRED INDEPENDENTLY TO EDGE OF BED. SAT UP AND USED COMPUTER AND ATE APPROXIMATELY 30% OF FULL LIQUID DINNER. REPORTED TOLERATED WELL AND WISHES TO BE ADVANCED TO REGULAR DIET FOR BREAKFAST. CALL LIGHT IN REACH. LYING BACK IN BED, WATCHING COMPUTER. DENIES ANY NEEDS AT THIS TIME.
--- NOTE | 2019-06-12 19:38 | NUR ---
VANGIE NOTE PT A&Ox3; CALM AND COOPERATIVE WITH CARE. PT RESTING IN BED DURING SHIFT. PT REPORTS MILD PAIN IN RUQ; DENIES NEEDS FOR MEDCIATIONS. PT DENIES SOB, CHEST PAIN/PRESSURE, LIGHTHEADED/DIZZINESS AND NAUSEA. PT TO SURGEY THIS AM; BACK TO ROOM WITH 4 SURGICAL SITE; RECOVERY VITALS STABLE. PT EATING CLEAR LIQUID FOR LUNCH APPEARS TO TOLERATE WELL, ADVACNED TO FULL LIQUIDS PER ORDERS. REPROT GIVEN TO JUNE SANTIAGO ON SURGICAL UNIT, PT TRANSFERED TO 220 AT 1713; PT STABLE UPON TRANSFER.
--- NOTE | 2019-06-13 06:18 | NUR ---
SHIFT SUMMARY HAS RESTED THIS SHIFT. PAIN MANAGED WITH PRN FENTANYL GIVEN X2 THIS SHIFT. LAP SITE DRESSINGS ARE C/D/I, HAS BEEN ABLE TO AMBULATE TO BATHROOM WITH STANDBY ASSIST. DENIES FURTHER NEEDS OR WANTS AT THIS TIME SAFETY MEASURES IN PLACE. WILL GIVE HAND OFF TO ONCOMING SHIFT USING SBAR DURING BEDSIDE REPORT.
[2019-06-13] MEDS ORDERED: HYDR1TAB94 PO (12:43)
--- NOTE | 2019-06-13 15:35 | NUR ---
DISCHARGE SUMMARY PT A&OX4, VSS, LEFT FLOOR VIA WC WITH ADULT PROTECTIVE CASEWORKER, WITH ALL PERSONAL POSSESSIONS INCLUDING DC PACKET AND 1 NARC SCRIPT. DC INSTRUCTIONS PROVIDED. PT REP UNDERSTANDING THOSE INSTRUCTIONS INCLUDING FU WITH GEN [facility] IN 2 WKS, LEAVE STERISTRIPS IN PLACE THEY WILL COME OFF ON THEIR OWN 7-10 DAYS, OK TO SHOWER. IV DC'D.
== END 2019-06-13 13:57 | disposition home or self-care (01) ==
LOC: ER 07:30 → PCU 07:31 → ERHOLD 07:31 → PCU 07:32 → ERHOLD 13:55 → PCU 13:55 → ER 13:55 → PCU 13:55 → ERHOLD 16:21 → PCU 17:54 → SURS 06-12 17:26
PROVIDERS: Emergency Medicine; Nurse Practitioner Acute Care; Surgery; ADMIT Hospitalist
PROC: BF13YZZ Fluoroscopy of Gallbladder and Bile Ducts using Other Contrast (ICD-10-PCS; principal; 2019-06-12 09:00)
PROC: 0FT44ZZ Resection of Gallbladder, Percutaneous Endoscopic Approach (ICD-10-PCS; principal; 2019-06-12 09:00)
DX: K80.10 Calculus of gallbladder with chronic cholecystitis without obstruction (principal); J96.01 Acute respiratory failure with hypoxia; I10 Essential (primary) hypertension; E78.5 Hyperlipidemia, unspecified; E11.42 Type 2 diabetes mellitus with diabetic polyneuropathy; G43.909 Migraine, unspecified, not intractable, without status migrainosus; A41.9 Sepsis, unspecified organism; J06.9 Acute upper respiratory infection, unspecified; Z88.8 Allergy status to other drugs, medicaments and biological substances; Z79.82 Long term (current) use of aspirin; Z79.4 Long term (current) use of insulin; Z79.899 Other long term (current) drug therapy; Z90.89 Acquired absence of other organs
CPT/HCPCS: 0099U; 36415; 71045; 74300; 76705; 80053; 81003; 82010; 82947; 83605; 83690; 84145; 85025; 85379; 87040; 87804; 88304; 93005; 93010; 96361; 96365; 96375; 99285-25; A9270; A9270-GY; C1894; C9113; G0378; J1170; J2250; J2370; J2405; J2543; J2704; J2710; J2765; J3010; J7030; J7040; J7120

== ENCOUNTER 2020-01-05 22:04 | Emergency (ER) | payer OTHER ==
[~2020-01-05] VITALS: Ht 162.6 cm; Wt 99.8 kg
[~2020-01-05 22:04] MED LIST changes: +ALOGLIPTIN25 MG PO; +HYDR1TAB94 PO; +KLOR-CON M1010 MEQ PO; +NEURONTIN300 MG PO
[2020-01-05] MEDS ORDERED: CEPH500 PO (22:55)
== END 2020-01-05 23:51 | disposition home or self-care (01) ==
LOC: ER 22:04
DX: S80.862A Insect bite (nonvenomous), left lower leg, initial encounter (principal); S80.861A Insect bite (nonvenomous), right lower leg, initial encounter; Z91.030 Bee allergy status; Z88.8 Allergy status to other drugs, medicaments and biological substances; Z79.82 Long term (current) use of aspirin; Z79.4 Long term (current) use of insulin; Z79.899 Other long term (current) drug therapy; E11.9 Type 2 diabetes mellitus without complications; I10 Essential (primary) hypertension; W57.XXXA Bitten or stung by nonvenomous insect and other nonvenomous arthropods, initial encounter
CPT/HCPCS: 99283; A9270-GY

== ENCOUNTER 2020-02-18 07:05 | Observation (INO) | payer OTHER ==
[~2020-02-18] VITALS: Ht 162.6 cm; Wt 100.5 kg
[~2020-02-18 07:05] MED LIST changes: +CEPH500 PO
[2020-02-18 07:53] LABS: Source, Urine Voided
[2020-02-18 07:57] LABS: BASOPHILS ABSOLUTE AUTO 0.01 K/mm3 (0.00-0.23); BASOPHILS PERCENT AUTO 0 % (0-2); EOSINOPHILS ABSOLUTE AUTO 0.04 K/mm3 (0.00-0.68); EOSINOPHILS PERCENT AUTO 1 % (0-6); Hematocrit 40.5 % (37.0-53.0); Hemoglobin 13.4 g/dL (13.5-17.5); IMMATURE GRAN ABSOLUTE AUTO 0.02 K/mm3 (0.00-0.10); IMMATURE GRAN PERCENT AUTO 0 % (0-1); LYMPHOCYTES ABSOLUTE AUTO 0.89 K/mm3 (0.84-5.20); LYMPHOCYTES PERCENT AUTO 16 % (21-46); MONOCYTES ABSOLUTE AUTO 0.52 K/mm3 (0.16-1.47); MONOCYTES PERCENT AUTO 9 % (4-13); Mean Corpuscular HGB 30.4 pg (26.0-34.0); Mean Corpuscular HGB Conc 33.1 g/dL (31.5-36.5); Mean Corpuscular Volume 92 fL (80-100); Mean Platelet Volume 9.2 fL (9.1-12.4); NEUTROPHILS ABSOLUTE AUTO 4.25 K/mm3 (1.96-9.15); NEUTROPHILS PERCENT AUTO 74 % (41-73); Platelet Count 197 K/mm3 (150-400); RDW Coefficient Variation 11.9 % (11.7-14.2); RDW Standard Deviation 40.4 fL (35.1-46.3); Red Blood Cell Count 4.41 M/mm3 (4.30-5.90); White Blood Cell Count 5.73 K/mm3 (4.00-11.30)
[2020-02-18 08:05] LABS: Appearance, Urine Clear (Clear); Bilirubin, Urine Neg (Neg); Blood, Urine Neg (Neg); Color, Urine Amber (P-Yellow); Glucose Qualitative, Urine Neg (Neg); Ketones, Urine 3+ (Neg); Leukocyte Esterase, Urine 1+ (Neg); Nitrite, Urine Neg (Neg); Protein, Urine 3+ (Neg); Specific Gravity, Urine 1.025 (1.003-1.022); Urobilinogen, Urine 1+ (Normal)
[2020-02-18 08:19] LABS: Bacteria Few /hpf; Mucus Mod (0-Heavy); Red Blood Cells, Urine 0-2 /hpf (0-2); Spermatozoa Mod /hpf; Squamous Epithelial Cells Not Seen /hpf (Few)
[2020-02-18 08:23] LABS: U Amphetamine Screen Not Detected; U Barbituate Screen Not Detected; U Benzodiazapine Screen Not Detected; U Buprenorphine Screen Not Detected; U Cannabinoids Screen Not Detected; U Cocaine Screen Not Detected; U Methadone Screen Not Detected; U Methamphetamine Screen Not Detected; U Opiates Screen Not Detected; U Oxycodone Screen Not Detected; U Phencyclidine Screen Not Detected; U Propoxyphene Screen Not Detected
[2020-02-18 08:23] LABS: Base Excess Venous 0.1 mmol/L; Bicarbonate Venous 25.1 mmol/L (24.0-30.0); PCO2 Venous 33 mmHg (38-42); pH Blood Venous 7.47 (7.34-7.37)
[2020-02-18 08:24] LABS: PO2 Venous 144 mmHg (38-42)
[2020-02-18 08:28] LABS: Alanine Aminotransfer (ALT/SGP 52 U/L (12-78); Albumin, Blood 3.5 g/dL (3.4-5.0); Albumin/Globulin Ratio 0.7 (0.8-1.8); Alk Phos 74 U/L (50-136); Anion Gap 9 mmol/L (6-16); Aspartate Aminotrans (AST/SGOT 40 U/L (12-37); Bilirubin, Total 0.5 mg/dL (0.1-1.0); Blood Urea Nitrogen 20 mg/dL (8-24); Bun/Creatinine Ratio 21.6 (12.0-20.0); CO2, Blood 27 mmol/L (21-32); Chloride, Blood 107 mmol/L (98-108); Creatinine, Blood 0.93 mg/dL (0.60-1.20); Globulin, Blood 4.9 g/dL (2.2-4.0); Glomerular Filtration Rate >60 (60-); Glucose, Blood 157 mg/dL (70-99); Potassium, Blood 3.9 mmol/L (3.5-5.5); Sodium, Blood 143 mmol/L (136-145); Total Protein, Blood 8.4 g/dL (6.4-8.2); Troponin I <0.015 ng/mL (0.000-0.040)
[2020-02-18 08:30] LABS: Ethanol (Alcohol), Blood, Med <3 mg/dL
[2020-02-18 12:46] LABS: SARS-Cov-2 (COVID-19), BioFire Detected (NOT DETECT)
[2020-02-18 12:47] LABS: Adenovirus Not Detected (NOT DETECT); Bordetella pertussis Not Detected (NOT DETECT); Chlamydophila pneumoniae Not Detected (NOT DETECT); Coronavirus 229E Not Detected (NOT DETECT); Coronavirus HKU1 Not Detected (NOT DETECT); Coronavirus NL63 Not Detected (NOT DETECT); Coronavirus OC43 Not Detected (NOT DETECT); Human Metapneumovirus Not Detected (NOT DETECT); Human Rhinovirus/Enterovirus Not Detected (NOT DETECT); Influenza A/2009-H1 Not Detected (NOT DETECT); Influenza A/H1 Not Detected (NOT DETECT); Influenza A/H3 Not Detected (NOT DETECT); Influenza B Not Detected (NOT DETECT); Mycoplasma pneumoniae Not Detected (NOT DETECT); Parainfluenza Virus 1 Not Detected (NOT DETECT); Parainfluenza Virus 2 Not Detected (NOT DETECT); Parainfluenza Virus 3 Not Detected (NOT DETECT); Parainfluenza Virus 4 Not Detected (NOT DETECT); Respiratory Syncytial Virus Not Detected (NOT DETECT)
[2020-02-18] MEDS ORDERED: NEURONTIN300 MG PO (12:48)
[2020-02-18] MEDS ORDERED: LANTUS SOL100 UNIT/1 SC (12:48)
[2020-02-18] MEDS ORDERED: HUMULIN R100 UNIT/2 SC (12:48)
[2020-02-18] MEDS ORDERED: PRINIVIL10 MG PO (12:49)
--- NOTE | 2020-02-18 15:33 | NUR ---
SHIFT SUMMARY PT WAS ADMITTED FROM THE ED THIS AFTERNOON. HE HAS NO C/O PAIN BUT DOES REPORT NAUSEA WITH NO EMESIS SINCE HIS ARRIVAL. HE STATES THAT THE N/V HAS BEEN PERSISTANT FOR ABOUT A WEEK AND HE HAS HAD A DECREASED APPETITE. HE REPORTS SOME MILD SOB BUT DOES NOT APPEAR TO BE IN DISTRESS. HIS O2 SAT IS IN THE HIGH 90'S. PT WAS CONCERNED ABOUT HIS COVID POSITIVE TEST HE HAS A AND DAUGHTER AT HOME. INFECTION CONTROL WAS CALLED WITH HIS QUESTIONS AND THEY WERE ABLE TO ANSWER HIS QUESTIONS TO HIS SATISFACTION. THE PT REQUESTED TO GET UP AND SHOWER SO THIS NURSE SET HIM UP IN HIS ROOM. HE IS SINUS TACH ON TELE AND DR MANN IS AWARE. THE PT IS IND IN HIS ROOM AND ABLE TO MAKE HIS NEEDS KNOWN. HE VERBALIZED AN UNDERSTANDING OF THE USE OF HIS CALL LIGHT.
--- NOTE | 2020-02-19 04:50 | NUR ---
02/19/20 0445 PT SLEEPING "ON AND OFF" WHEN ASKED. LOW GRADE FEVER NOTED. HEART MONITOR NOW SHOWING "SR AT 85" PER MANAGER OBAMY SHIELDS. IV FLUIDS AT 100ML/HOUR. VOIDING QS. DROPLET ISOLATION MAINTAINED. BREATH SOUNDS REMAIN WHEEZING IN UPPER LOBES AND DIMINISHED IN LOWER LOBES. OCC. COUGH. MEDICATED FOR HEADACHE EARLIER WITH RELIEF.
[2020-02-19 06:00] LABS: BASOPHILS PERCENT AUTO 0 % (0-2); EOSINOPHILS ABSOLUTE AUTO 0.01 K/mm3 (0.00-0.68); EOSINOPHILS PERCENT AUTO 0 % (0-6); Hematocrit 34.9 % (37.0-53.0); Hemoglobin 11.8 g/dL (13.5-17.5); IMMATURE GRAN ABSOLUTE AUTO 0.04 K/mm3 (0.00-0.10); IMMATURE GRAN PERCENT AUTO 1 % (0-1); LYMPHOCYTES ABSOLUTE AUTO 1.38 K/mm3 (0.84-5.20); LYMPHOCYTES PERCENT AUTO 32 % (21-46); MONOCYTES ABSOLUTE AUTO 0.59 K/mm3 (0.16-1.47); MONOCYTES PERCENT AUTO 14 % (4-13); Mean Corpuscular HGB 30.8 pg (26.0-34.0); Mean Corpuscular HGB Conc 33.8 g/dL (31.5-36.5); Mean Corpuscular Volume 91 fL (80-100); Mean Platelet Volume 9.1 fL (9.1-12.4); NEUTROPHILS ABSOLUTE AUTO 2.32 K/mm3 (1.96-9.15); NEUTROPHILS PERCENT AUTO 54 % (41-73); Platelet Count 204 K/mm3 (150-400); RDW Coefficient Variation 11.9 % (11.7-14.2); RDW Standard Deviation 39.8 fL (35.1-46.3); Red Blood Cell Count 3.83 M/mm3 (4.30-5.90); White Blood Cell Count 4.34 K/mm3 (4.00-11.30)
[2020-02-19 06:22] LABS: Alanine Aminotransfer (ALT/SGP 40 U/L (12-78); Albumin, Blood 2.8 g/dL (3.4-5.0); Albumin/Globulin Ratio 0.6 (0.8-1.8); Alk Phos 57 U/L (50-136); Anion Gap 9 mmol/L (6-16); Aspartate Aminotrans (AST/SGOT 30 U/L (12-37); Bilirubin, Total 0.5 mg/dL (0.1-1.0); Blood Urea Nitrogen 14 mg/dL (8-24); Bun/Creatinine Ratio 16.4 (12.0-20.0); CO2, Blood 24 mmol/L (21-32); Calcium, Blood 8.2 mg/dL (8.5-10.1); Chloride, Blood 106 mmol/L (98-108); Creatinine, Blood 0.85 mg/dL (0.60-1.20); Globulin, Blood 4.4 g/dL (2.2-4.0); Glomerular Filtration Rate >60 (60-); Glucose, Blood 106 mg/dL (70-99); Magnesium, Blood 1.9 mg/dL (1.6-2.4); Potassium, Blood 3.6 mmol/L (3.5-5.5); Sodium, Blood 139 mmol/L (136-145); Total Protein, Blood 7.2 g/dL (6.4-8.2)
--- NOTE | 2020-02-19 16:47 | NUR ---
PATIENT IS ALERT AND ORIENTED AND COOPERATIVE WITH CARE. HE USES THE URINAL INDEPENDENTLY AND ABULATES TO THE BATHROOM. NO COMPLAINTS OF SOB. OXYGEN SATURATION OF 96% ON RA. PATIENT SHOWERED TODAY. C/O NAUSEA AFTER THE SHOWER, MEDICATED PER EMAR. NS RUNNING AT 100/HR. WILL CONTINUE TO MONITOR.
--- NOTE | 2020-02-20 04:53 | NUR ---
02/20/20 0115 PT C/O NIGHT SWEATS AND LINENS MOIST. BED LINENS CHANGED AND VITALS TAKEN. VITALS STABLE. NO OTHER COMPLAINTS.
[2020-02-20 05:39] LABS: BASOPHILS ABSOLUTE AUTO 0.01 K/mm3 (0.00-0.23); BASOPHILS PERCENT AUTO 0 % (0-2); EOSINOPHILS ABSOLUTE AUTO 0.02 K/mm3 (0.00-0.68); EOSINOPHILS PERCENT AUTO 0 % (0-6); Hemoglobin 11.4 g/dL (13.5-17.5); IMMATURE GRAN ABSOLUTE AUTO 0.01 K/mm3 (0.00-0.10); IMMATURE GRAN PERCENT AUTO 0 % (0-1); LYMPHOCYTES ABSOLUTE AUTO 0.87 K/mm3 (0.84-5.20); LYMPHOCYTES PERCENT AUTO 19 % (21-46); MONOCYTES ABSOLUTE AUTO 0.68 K/mm3 (0.16-1.47); MONOCYTES PERCENT AUTO 15 % (4-13); Mean Corpuscular HGB 30.7 pg (26.0-34.0); Mean Corpuscular HGB Conc 34.5 g/dL (31.5-36.5); Mean Corpuscular Volume 89 fL (80-100); NEUTROPHILS ABSOLUTE AUTO 3.03 K/mm3 (1.96-9.15); NEUTROPHILS PERCENT AUTO 66 % (41-73); Platelet Count 223 K/mm3 (150-400); RDW Coefficient Variation 11.7 % (11.7-14.2); RDW Standard Deviation 37.9 fL (35.1-46.3); Red Blood Cell Count 3.71 M/mm3 (4.30-5.90); White Blood Cell Count 4.62 K/mm3 (4.00-11.30)
[2020-02-20 06:02] LABS: Alanine Aminotransfer (ALT/SGP 31 U/L (12-78); Albumin, Blood 2.7 g/dL (3.4-5.0); Albumin/Globulin Ratio 0.6 (0.8-1.8); Alk Phos 48 U/L (50-136); Anion Gap 8 mmol/L (6-16); Aspartate Aminotrans (AST/SGOT 20 U/L (12-37); Bilirubin, Total 0.4 mg/dL (0.1-1.0); Blood Urea Nitrogen 8 mg/dL (8-24); Bun/Creatinine Ratio 10.6 (12.0-20.0); CO2, Blood 25 mmol/L (21-32); Calcium, Blood 7.9 mg/dL (8.5-10.1); Chloride, Blood 108 mmol/L (98-108); Creatinine, Blood 0.75 mg/dL (0.60-1.20); Globulin, Blood 4.4 g/dL (2.2-4.0); Glomerular Filtration Rate >60 (60-); Glucose, Blood 160 mg/dL (70-99); Potassium, Blood 3.6 mmol/L (3.5-5.5); Sodium, Blood 141 mmol/L (136-145); Total Protein, Blood 7.1 g/dL (6.4-8.2)
--- NOTE | 2020-02-20 07:28 | NUR ---
02/20/20 0500 SLEEPING ON AND OFF. OCC. COUGHING EPISODES. HAD ONE EMESIS AT CHANGE OF SHIFT AROUND 1900 AND WAS MEDICATED FOR NAUSEA WITH RELIEF. IV FLUIDS AT 100ML/HOUR. VITALS STABLE.
[2020-02-20] MEDS ORDERED: Aspir 8181 MG PO (14:46)
[2020-02-20] MEDS ORDERED: Prinivil10 MG PO (14:47)
[2020-02-20] MEDS ORDERED: Vitamin D2000 UNIT PO (14:48)
--- NOTE | 2020-02-20 15:19 | NUR ---
PT DC AT APPROX 1520 VIA WHEELCHAIR WITH [facility]. PT LEFT WITH SURGICAL MASK ON. IV WAS REMOVED AND SITE LOOKED TO BE WNL. DISCHARGE INSTRUCTIONS WERE PROVIDED AND PT VERBALIZIED UNDERSTANDING. TELE WAS ALSO REMOVED AND GAUGE AND WEIGH MACHINE OPERATOR WAS NOTIFIED.
== END 2020-02-20 15:20 | disposition home or self-care (01) ==
LOC: ER 07:05 → MEDS 07:06 → ER 13:08 → MEDS 13:08 → ER 02-19 07:05 → MEDS 02-19 16:08
PROVIDERS: Emergency Medicine; ADMIT Internal Medicine
DX: U07.1 COVID-19 (principal); I10 Essential (primary) hypertension; E78.5 Hyperlipidemia, unspecified; E10.40 Type 1 diabetes mellitus with diabetic neuropathy, unspecified; E10.69 Type 1 diabetes mellitus with other specified complication; M86.8X9 Other osteomyelitis, unspecified sites; G43.909 Migraine, unspecified, not intractable, without status migrainosus; Z23 Encounter for immunization; Z88.8 Allergy status to other drugs, medicaments and biological substances; Z91.030 Bee allergy status; Z79.4 Long term (current) use of insulin; Z79.82 Long term (current) use of aspirin; Z79.899 Other long term (current) drug therapy; Z89.412 Acquired absence of left great toe; Z90.49 Acquired absence of other specified parts of digestive tract
CPT/HCPCS: 0202U; 36415; 71045; 74177; 80053; 81001; 82652; 82803; 82947; 83605; 83690; 83735; 84145; 84484; 85025; 87040; 87086; 93005; 93010; 94640; 94760; 96361; 96374; 96376; 99285-25; A9270; A9270-GY; G0378; G0480; J1200; J1650; J2405; J2765; J7030; Q9967

== ENCOUNTER 2020-10-12 07:05 | Emergency (ER) | payer OTHER ==
[~2020-10-12] VITALS: Ht 162.6 cm; Wt 95.2 kg
[~2020-10-12 07:05] MED LIST changes: +Aspir 8181 MG PO; +HUMULIN R100 UNIT/2 SC; +LANTUS SOL100 UNIT/1 SC; +PRINIVIL10 MG PO; +Prinivil10 MG PO; +Vitamin D2000 UNIT PO
[2020-10-12] MEDS ORDERED: ATORVASTATIN CA20 MG PO (07:48)
[2020-10-12] MEDS ORDERED: MELO7.5 PO (07:48)
[2020-10-12] MEDS ORDERED: AMLODIPINE BESYL5 MG PO (07:49)
[2020-10-12] MEDS ORDERED: TRAM50 PO (09:06)
== END 2020-10-12 09:35 | disposition home or self-care (01) ==
LOC: ER 07:05
DX: M79.672 Pain in left foot (principal); G89.29 Other chronic pain; I10 Essential (primary) hypertension; E11.9 Type 2 diabetes mellitus without complications; Z98.890 Other specified postprocedural states; Z91.030 Bee allergy status; Z88.6 Allergy status to analgesic agent; Z79.4 Long term (current) use of insulin; Z79.899 Other long term (current) drug therapy
CPT/HCPCS: 73620; 99283-25

== ENCOUNTER → 2020-12-25 | Outpatient (CLI) | payer OTHER ==
[~2020-12-25] MED LIST changes: +AMLODIPINE BESYL5 MG PO; +ATORVASTATIN CA20 MG PO; +MELO7.5 PO; +TRAM50 PO
== END | disposition home or self-care (01) ==
LOC: LAB SHORT 09:30 → LAB 09:30
DX: S90.822A Blister (nonthermal), left foot, initial encounter (principal)
CPT/HCPCS: 87070; 87205

== ENCOUNTER 2022-06-10 07:50 | Day surgery (SDC) | payer OTHER | END 2022-06-10 22:38 | disposition home or self-care (01) | LOC: WOUND 07:50 | DX: E11.622 Type 2 diabetes mellitus with other skin ulcer (principal); I10 Essential (primary) hypertension; R77.0 Abnormality of albumin; Z89.512 Acquired absence of left leg below knee | CPT/HCPCS: G0463 ==

== ENCOUNTER 2022-06-24 01:47 | Day surgery (SDC) | payer OTHER | END 2022-06-24 22:46 | disposition home or self-care (01) | LOC: WOUND 01:47 | DX: T87.89 Other complications of amputation stump (principal); I10 Essential (primary) hypertension; E11.622 Type 2 diabetes mellitus with other skin ulcer | CPT/HCPCS: A9270 ==

== ENCOUNTER 2022-07-07 01:59 | Day surgery (SDC) | payer OTHER | END 2022-07-07 22:35 | disposition home or self-care (01) | LOC: WOUND 01:59 | DX: T87.89 Other complications of amputation stump (principal); I10 Essential (primary) hypertension; E11.622 Type 2 diabetes mellitus with other skin ulcer | CPT/HCPCS: A9270 ==

== ENCOUNTER 2022-07-14 00:45 | Day surgery (SDC) | payer OTHER | END 2022-07-14 23:01 | disposition home or self-care (01) | LOC: WOUND 00:45 | DX: T87.89 Other complications of amputation stump (principal); I10 Essential (primary) hypertension; E11.622 Type 2 diabetes mellitus with other skin ulcer; L97.822 Non-pressure chronic ulcer of other part of left lower leg with fat layer exposed | CPT/HCPCS: A9270 ==

== ENCOUNTER 2022-07-21 03:37 | Day surgery (SDC) | payer OTHER | END 2022-07-21 22:58 | disposition home or self-care (01) | LOC: WOUND 03:37 | DX: E11.622 Type 2 diabetes mellitus with other skin ulcer (principal); I10 Essential (primary) hypertension; Z89.512 Acquired absence of left leg below knee; R77.0 Abnormality of albumin | CPT/HCPCS: G0463 ==

== ENCOUNTER 2022-07-28 02:12 | Day surgery (SDC) | payer OTHER | END 2022-07-28 22:59 | disposition home or self-care (01) | LOC: WOUND 02:12 | DX: T87.89 Other complications of amputation stump (principal); I10 Essential (primary) hypertension; E11.622 Type 2 diabetes mellitus with other skin ulcer; R77.0 Abnormality of albumin | CPT/HCPCS: A9270; G0463 ==

== ENCOUNTER 2022-08-04 02:33 | Day surgery (SDC) | payer OTHER | END 2022-08-04 22:42 | disposition home or self-care (01) | LOC: WOUND 02:33 | DX: E11.622 Type 2 diabetes mellitus with other skin ulcer (principal); L97.825 Non-pressure chronic ulcer of other part of left lower leg with muscle involvement without evidence of necrosis; I10 Essential (primary) hypertension; R77.0 Abnormality of albumin; Z89.512 Acquired absence of left leg below knee | CPT/HCPCS: A9270; G0463 ==

== ENCOUNTER 2022-08-11 01:15 | Day surgery (SDC) | payer OTHER | END 2022-08-11 23:00 | disposition home or self-care (01) | LOC: WOUND 01:15 | DX: T87.89 Other complications of amputation stump (principal); I10 Essential (primary) hypertension; E11.622 Type 2 diabetes mellitus with other skin ulcer; R77.0 Abnormality of albumin | CPT/HCPCS: A9270; G0463 ==

== ENCOUNTER 2022-08-18 02:33 | Day surgery (SDC) | payer OTHER | END 2022-08-18 23:29 | disposition home or self-care (01) | LOC: WOUND 02:33 | DX: E11.622 Type 2 diabetes mellitus with other skin ulcer (principal); L97.522 Non-pressure chronic ulcer of other part of left foot with fat layer exposed; I10 Essential (primary) hypertension; R77.0 Abnormality of albumin; Z89.512 Acquired absence of left leg below knee | CPT/HCPCS: A9270 ==

== ENCOUNTER 2022-08-25 03:08 | Day surgery (SDC) | payer OTHER | END 2022-08-25 22:38 | disposition home or self-care (01) | LOC: WOUND 03:08 | DX: E11.622 Type 2 diabetes mellitus with other skin ulcer (principal); L97.823 Non-pressure chronic ulcer of other part of left lower leg with necrosis of muscle; I10 Essential (primary) hypertension; R77.0 Abnormality of albumin; Z89.512 Acquired absence of left leg below knee | CPT/HCPCS: G0463 ==

== ENCOUNTER 2022-09-01 05:41 | Day surgery (SDC) | payer OTHER | END 2022-09-01 22:58 | disposition home or self-care (01) | LOC: WOUND 05:41 | DX: E11.622 Type 2 diabetes mellitus with other skin ulcer (principal); L97.825 Non-pressure chronic ulcer of other part of left lower leg with muscle involvement without evidence of necrosis; I10 Essential (primary) hypertension; R77.0 Abnormality of albumin; Z89.512 Acquired absence of left leg below knee | CPT/HCPCS: 87071; 87075; 87205; A9270; G0463 ==

== ENCOUNTER 2022-09-08 00:28 | Day surgery (SDC) | payer OTHER | END 2022-09-08 22:51 | disposition home or self-care (01) | LOC: WOUND 00:28 | DX: E11.622 Type 2 diabetes mellitus with other skin ulcer (principal); L98.493 Non-pressure chronic ulcer of skin of other sites with necrosis of muscle; I10 Essential (primary) hypertension; R77.0 Abnormality of albumin; Z89.512 Acquired absence of left leg below knee | CPT/HCPCS: A9270; G0463 ==

== ENCOUNTER 2022-09-15 00:38 | Day surgery (SDC) | payer OTHER | END 2022-09-15 22:43 | disposition home or self-care (01) | LOC: WOUND 00:38 | DX: T87.89 Other complications of amputation stump (principal); E11.622 Type 2 diabetes mellitus with other skin ulcer; R77.0 Abnormality of albumin; I10 Essential (primary) hypertension | CPT/HCPCS: A9270 ==

== ENCOUNTER 2022-09-22 03:41 | Day surgery (SDC) | payer OTHER | END 2022-09-22 22:50 | disposition home or self-care (01) | LOC: WOUND 03:41 | DX: E11.622 Type 2 diabetes mellitus with other skin ulcer (principal); L97.823 Non-pressure chronic ulcer of other part of left lower leg with necrosis of muscle; I10 Essential (primary) hypertension; R77.0 Abnormality of albumin; Z89.512 Acquired absence of left leg below knee | CPT/HCPCS: A9270; G0463 ==

== ENCOUNTER 2022-09-29 03:15 | Day surgery (SDC) | payer OTHER | END 2022-09-29 22:45 | disposition home or self-care (01) | LOC: WOUND 03:15 | DX: T87.89 Other complications of amputation stump (principal); E11.622 Type 2 diabetes mellitus with other skin ulcer; L97.822 Non-pressure chronic ulcer of other part of left lower leg with fat layer exposed; I10 Essential (primary) hypertension; R77.0 Abnormality of albumin | CPT/HCPCS: A9270; G0463 ==

== ENCOUNTER 2022-11-19 02:49 | Day surgery (SDC) | payer OTHER | END 2022-11-19 22:45 | disposition home or self-care (01) | LOC: WOUND 02:49 | DX: T87.81 Dehiscence of amputation stump (principal); E11.622 Type 2 diabetes mellitus with other skin ulcer; T87.89 Other complications of amputation stump | CPT/HCPCS: 87071; 87075; 87077; 87186; 87205; A9270; G0463 ==

== ENCOUNTER 2022-12-08 05:02 | Day surgery (SDC) | payer OTHER | END 2022-12-08 22:42 | disposition home or self-care (01) | LOC: WOUND 05:02 | DX: T87.81 Dehiscence of amputation stump (principal); E11.622 Type 2 diabetes mellitus with other skin ulcer; L97.822 Non-pressure chronic ulcer of other part of left lower leg with fat layer exposed | CPT/HCPCS: A9270 ==

== ENCOUNTER 2022-12-22 01:19 | Day surgery (SDC) | payer OTHER | END 2022-12-22 22:47 | disposition home or self-care (01) | LOC: WOUND 01:19 | DX: T87.81 Dehiscence of amputation stump (principal); T87.89 Other complications of amputation stump; E11.622 Type 2 diabetes mellitus with other skin ulcer | CPT/HCPCS: 87071; 87075; 87077; 87186; 87205; A9270; G0463 ==

== ENCOUNTER 2022-12-29 02:17 | Day surgery (SDC) | payer OTHER | END 2022-12-29 23:00 | disposition home or self-care (01) | LOC: WOUND 02:17 | DX: E11.622 Type 2 diabetes mellitus with other skin ulcer (principal); L97.825 Non-pressure chronic ulcer of other part of left lower leg with muscle involvement without evidence of necrosis; T81.31XA Disruption of external operation (surgical) wound, not elsewhere classified, initial encounter; I10 Essential (primary) hypertension; Z89.512 Acquired absence of left leg below knee; Y83.8 Other surgical procedures as the cause of abnormal reaction of the patient, or of later complication, without mention of misadventure at the time of the procedure | CPT/HCPCS: A9270; G0463 ==

== ENCOUNTER 2023-01-12 04:40 | Day surgery (SDC) | payer OTHER | END 2023-01-12 22:45 | disposition home or self-care (01) | LOC: WOUND 04:40 | DX: T87.81 Dehiscence of amputation stump (principal); E11.622 Type 2 diabetes mellitus with other skin ulcer; Z89.612 Acquired absence of left leg above knee | CPT/HCPCS: A9270; G0463 ==

== ENCOUNTER 2023-08-04 02:09 | Day surgery (SDC) | payer MEDICARE, OTHER ==
[~2023-08-04 02:09] MED LIST changes: +ACET500 PO; +ALBU90OI INH; +ALMACONE SUSPE355 ML PO; +ASCO500 PO; +CEFTRIAXONE2 G1 IV; +CHLORASEPTIC M1 EAC1 MM; +CYCL10 PO; +Calcium Carbon500 MG PO; +CefTRIAXone Sodium 2,000 MG in NS 100 ML IV SCH; +FAMO20 PO; +FURO20 PO; +Hair, Skin & N1 EACH PO; +INSULIN LI100 UNIT/6 SC; +MELA3 PO; +Neurontin600 MG PO; +OXYC15ER PO; +Zofran4 MG PO
[2023-08-04 13:39] VITALS: BP 156/92
== END 2023-08-04 14:10 | disposition home or self-care (01) ==
LOC: ATC 02:09
DX: E11.628 Type 2 diabetes mellitus with other skin complications (principal); M86.9 Osteomyelitis, unspecified; L08.9 Local infection of the skin and subcutaneous tissue, unspecified; I10 Essential (primary) hypertension; Z89.512 Acquired absence of left leg below knee; Z79.899 Other long term (current) drug therapy; Z79.4 Long term (current) use of insulin
CPT/HCPCS: 96365; J0696